=== PATIENT | female | born 1995 | race Caucasian/White ===

== ENCOUNTER 2016-05-28 13:50 | Emergency (ER) | payer OTHER ==
[~2016-05-28] VITALS: Ht 172.7 cm; Wt 81.6 kg
--- NOTE | 2016-05-28 14:00 | NUR ---
Patient to ER bed 06 to gown for evaluation. Side rails up.
[2016-05-28 14:02] VITALS: BP_SYST 139
--- NOTE | 2016-05-28 14:02 | NUR ---
Pt brought by parents, A&Ox4, pt states had mechanical fall, fell over a suitcase, c/o pain 8/10 on L elbow,mild swelling and redness noted, VSS, cap refill <3.
--- NOTE | 2016-05-28 14:05 | NUR ---
Dr Win at bedside examining patient
[2016-05-28] MEDS ORDERED: IBUPROFEN 600 MG TABLET PO ONE (14:30)
[2016-05-28 15:12] VITALS: BP_SYST 104
--- NOTE | 2016-05-28 15:12 | NUR ---
Patient given written and verbal discharge instructions and verbalizes understanding. ER MD Win discussed with patient the results and treatment provided. Patient in stable condition. ID arm band removed. Rx of motrin given. Patient educated on pain management and to follow up with PMD. Pain Scale 0/10. Opportunity for questions provided and answered.
== END 2016-05-28 15:12 | disposition home or self-care (01) ==
LOC: SED 13:50
DX: S63.502A Unspecified sprain of left wrist, initial encounter (principal); S50.02XA Contusion of left elbow, initial encounter; W01.0XXA Fall on same level from slipping, tripping and stumbling without subsequent striking against object, initial encounter; Y93.89 Activity, other specified; Y92.89 Other specified places as the place of occurrence of the external cause; Y99.8 Other external cause status
CPT/HCPCS: 81025; 99284

== ENCOUNTER 2016-06-06 15:19 | Outpatient (CLI) | payer OTHER | END 2016-06-06 21:30 | disposition home or self-care (01) | LOC: SRD 15:19 | PROVIDERS: ATTEND Family Medicine | DX: M25.532 Pain in left wrist (principal); Z87.828 Personal history of other (healed) physical injury and trauma; Z91.81 History of falling ==

== ENCOUNTER 2016-06-13 17:53 | Outpatient (CLI) | payer OTHER | END 2016-06-13 19:19 | disposition home or self-care (01) | LOC: SRD 17:53 | PROVIDERS: ATTEND Family Medicine | DX: S52.122D Displaced fracture of head of left radius, subsequent encounter for closed fracture with routine healing (principal); X58.XXXD Exposure to other specified factors, subsequent encounter | CPT/HCPCS: 73090 ==